=== PATIENT | female | born 1995 | race Caucasian/White ===

== ENCOUNTER → 2022-08-27 | Outpatient (CLI) | payer OTHER ==
--- NOTE | 2022-08-27 17:48 | CT ---
EXAMINATION TYPE: CT abdomen pelvis w con DATE OF EXAM: 08/27/2022 COMPARISON: None INDICATION: chronic umbilical bleeding DLP: 3462 mGycm, Automated exposure control for dose reduction was used. CONTRAST: 70 mL of Isovue 300. Study performed with Oral Contrast TECHNIQUE: Axial images were obtained from above the diaphragm to the pubic rami in the axial plane a t 5 mm thick sections. Reconstructed images are reviewed on the computer in the coronal plane. FINDINGS: Limited CT sections are obtained the lung bases. The lung bases are clear. CT ABDOMEN: Liver: Normal Spleen: Normal Pancreas: Normal Adrenal glands: The adrenal glands are normal. Gallbladder: Absent Kidneys: No masses are evident. No hydronephrosis is present. No cysts are present. Delayed images were obtained through the kidneys, which remain unremarkable. Aorta: Normal Inferior vena cava: Normal. CT PELVIS: No suspicious abnormality level of the umbilicus is evident. Loops of bowel within the abdomen and pelvis are normal. There are loops of bowel which are incom pletely distended or lack oral contrast limiting their evaluation. Appendix: Not identified. No dilated tubular structure or inflammatory changes are evident. Urinary bladder: Normal. Genitourinary structures: Uterus is normal. Adnexa are unremarkable. Osseous structures: No suspicious lytic or sclerotic lesions. IMPRESSIONS: 1. No acute CT abdomen or pelvic abnormality. Follow-up can be performed as clinically indicated
== END | disposition home or self-care (01) ==
LOC: RADCTMAIN 10:00
PROVIDERS: ATTEND Internal Medicine Gastroenterology
DX: R10.33 Periumbilical pain (principal); R19.7 Diarrhea, unspecified
CPT/HCPCS: 74177; Q9967 ×2

== ENCOUNTER 2022-12-03 10:30 | Emergency (ER) | payer OTHER ==
[2022-12-03 10:43] VITALS: BP 136/97; PULSE 75; RESP 20; TEMP 98.8
--- NOTE | 2022-12-03 11:57 | XR ---
EXAMINATION TYPE: XR calcaneus 2V RT DATE OF EXAM: 12/03/2022 COMPARISON: None HISTORY: Heel pain TECHNIQUE: Two-view calcaneus FINDINGS: No acute fractures are evident. Bohler's angle is normal. Joint spaces appear preserved. He el pad is normal. Extremely subtle Achilles tendon calcaneal heel spur may be present. No plantar ramon caneal heel spur is evident. Follow-up exams can be performed in 7-10 days from acute trauma for cont inued pain. IMPRESSION: 1. No acute osseous abnormality right calcaneus
[2022-12-03] MEDS ORDERED: ACET/COD 300 MG/30 MG STARTER PACK 6 TAB BTL PO STA (12:21)
--- NOTE | 2022-12-03 12:22 | ED ---
Lower Extremity Injury HPI - General Chief Complaint: Extremity Injury, Lower Stated Complaint: Rt foot pain Time Seen by Provider: 12/03/22 10:52 Source: patient, RN notes reviewed Mode of arrival: ambulatory Limitations: no limitations - History of Present Illness Initial Comments: 24-year-old female presents emergency Department with chief complaint of right heel pain. Patient states has been bothersome for last couple days. She states that she's been doing a large amount of getting up and down helping her dog that surgery. Patient states she has pain 1 and pain no pain at rest denies any trauma otherwise she states it feels a pulling sensation or any area of swelling in her heel. Patient denies any redness. Patient offers no other associated complaints. - Related Data Home Medications Medication Instructions Recorded Confirmed Albuterol Sulfate [Ventolin HFA] 2 puff INHALATION RT-Q6H PRN 12/03/22 12/03/22 Beclomethasone Dip 80 Mcg/Puff 2 puff INHALATION RT-DAILY 12/03/22 12/03/22 [Qvar 80 mcg] Cholestyramine (with Sugar) 4 gm PO DAILY 12/03/22 12/03/22 [Questran] DULoxetine HCL [Cymbalta] 60 mg PO HS 12/03/22 12/03/22 Etonogestrel/Ethinyl Estradiol 1 ring VAGINAL DIRECTED 12/03/22 12/03/22 [Nuvaring Vaginal Ring] Fluticasone Nasal [place] [Flonase 2 spr EA NOSTRIL DAILY 12/03/22 12/03/22 Nasal Bradford] Imipramine [Tofranil] 25 mg PO HS 12/03/22 12/03/22 Methylphenidate HCl [Ritalin] 10 mg PO DAILY 12/03/22 12/03/22 Omeprazole 20 mg PO BID 12/03/22 12/03/22 diazePAM [Valium] 2 mg PO HS 12/03/22 12/03/22 Previous Rx's Medication Instructions Recorded predniSONE 50 mg PO DAILY #5 tab 12/03/22 Allergies Allergy/AdvReac Type Severity Reaction Status Date / Time sulfamethoxazole Allergy Severe Rash/Hives Verified 12/03/22 11:32 [From Bactrim] trimethoprim [From Bactrim] Allergy Severe Rash/Hives Verified 12/03/22 11:32 Review of Systems ROS Statement: Those systems with pertinent positive or pertinent negative responses have been documented in the HPI. ROS Other: All systems not noted in ROS Statement are negative. Past Medical History Past Medical History: Asthma History of Any Multi-Drug Resistant Organisms: None Reported Past Surgical History: Cholecystectomy, Tonsillectomy Past Psychological History: ADD/ADHD, Anxiety, Depression Smoking Status: Never smoker Past Alcohol Use History: Occasional Past Drug Use History: Marijuana General Exam Limitations: no limitations General appearance: alert, in no apparent distress Head exam: Present: atraumatic, normocephalic, normal inspection Eye exam: Present: normal appearance, PERRL, EOMI. Absent: scleral icterus, conjunctival injection, periorbital swelling Neck exam: Present: normal inspection, full ROM. Absent: tenderness, meningismus, lymphadenopathy Respiratory exam: Present: normal lung sounds bilaterally. Absent: respiratory distress, wheezes, rales, rhonchi, stridor Cardiovascular Exam: Present: regular rate, normal rhythm, normal heart sounds. Absent: systolic murmur, diastolic murmur, rubs, gallop, clicks Extremities exam: Present: other (Right heel there is tenderness in the posterior aspect and at the base of the foot. Neurovascular intact full range of motion) Course Vital Signs 12/03/22 10:40 Temperature 98.8 F Pulse Rate 75 Respiratory 20 Rate Blood Pressure 136/97 O2 Sat by Pulse 99 Oximetry Medical Decision Making - Medical Decision Making Was pt. sent in by a medical professional or institution (, PA, PLATING TANK OPERATOR, urgent care, hospital, or prison...) When possible be specific @ -No Did you speak to anyone other than the patient for history (EMS, parent, family, police, friend...)? What history was obtained from this source @ -No Did you review nursing and triage notes (agree or disagree)? Why? @ -I reviewed and agree with nursing and triage notes Were old charts reviewed (outside hosp., previous admission, EMS record, old EKG, old radiological studies, urgent care reports/EKG's, prison records)? Report findings @ -No old charts were reviewed Differential Diagnosis (chest pain, altered mental status, abdominal pain women, abdominal pain men, vaginal bleeding, weakness, fever, dyspnea, syncope, headache, dizziness, GI bleed, back pain, seizure, CVA, palpatations, mental health, musculoskeletal)? @ -Right foot sprain, tendinitis, right foot fracture EKG interpreted by me (3pts min.). @ -None X-rays interpreted by me (1pt min.). @ -X-ray right heel shows small cocaine use per otherwise no acute process CT interpreted by me (1pt min.). @ -None done U/S interpreted by me (1pt. min.). @ -None done What testing was considered but not performed or refused? (CT, X-rays, U/S, labs)? Why? @ -None What meds were considered but not given or refused? Why? @ -None Did you discuss the management of the patient with other professionals ( professionals i.e. , PA, PLATING TANK OPERATOR, lab, RT, psych nurse, executive secretary social welfare, sports marketer, teacher, rating officer, insurance case manager)? Give summary @ -No Was smoking cessation discussed for >3mins.? @ -No Was critical care preformed (if so, how long)? @ -No Were there social determinants of health that impacted care today? How? (Homelessness, low income, unemployed, alcoholism, drug addiction, transportation, low edu. Level, literacy, decrease access to med. care, shelter, rehab)? @ -No Was there de-escalation of care discussed even if they declined (Discuss DNR or withdrawal of care, Hospice)? DNR status @ -No What co-morbidities impacted this encounter? (DM, HTN, Smoking, COPD, CAD, Cancer, CVA, ARF, Chemo, Hep., AIDS, mental health diagnosis, sleep apnea, morbid obesity)? @ -None Was patient admitted / discharged? Hospital course, mention meds given and route, prescriptions, significant lab abnormalities, going to OR and other pertinent info. @ -Discharge patient symptoms are consistent with acute tendinitis patient will be placed on rest, ice elevation and follow-up with orthopedics was placed on anti-inflammatories and gentle daily stretching. Undiagnosed new problem with uncertain prognosis? @ -No Drug Therapy requiring intensive monitoring for toxicity (Heparin, Nitro, Insulin, Cardizem)? @ -No Were any procedures done? @ -No Diagnosis/symptom? @ -Right Achilles tendinitis Acute, or Chronic, or Acute on Chronic? @ -Acute Uncomplicated (without systemic symptoms) or Complicated (systemic symptoms)? @ -Uncomplicated Side effects of treatment? @ -No Exacerbation, Progression, or Severe Exacerbation? @ -No Poses a threat to life or bodily function? How? (Chest pain, [place], OR, pneumonia, PE, COPD, DKA, ARF, appy, cholecystitis, CVA, Diverticulitis, Homicidal, Suicidal, threat to staff... and all critical care pts) @ -No Disposition Clinical Impression: Right Achilles tendinitis Disposition: HOME SELF-CARE Condition: Stable Instructions (If sedation given, give patient instructions): Achilles Tendinitis (ED) Additional Instructions: Please return to the Emergency Department if symptoms worsen or any other concerns. Prescriptions: predniSONE 50 mg PO DAILY #5 tab Is patient prescribed a controlled substance at d/c from ED?: No Referrals: Yasmeen Lucio PAC [Primary Care Provider] - 1-2 days Josef Nash MD [STAFF PHYSICIAN] - 1-2 days Time of Disposition: 12:21
== END 2022-12-03 12:34 | disposition home or self-care (01) ==
LOC: EC 10:30
DX: M76.61 Achilles tendinitis, right leg (principal); J45.909 Unspecified asthma, uncomplicated; F41.9 Anxiety disorder, unspecified; F32.A Depression, unspecified; F12.90 Cannabis use, unspecified, uncomplicated; Z88.2 Allergy status to sulfonamides; Z79.51 Long term (current) use of inhaled steroids; Z79.899 Other long term (current) drug therapy
CPT/HCPCS: 99283